=== PATIENT | female | born 1970 | race American Indian/Alaskan Native ===

== ENCOUNTER 2020-05-20 12:04 | Outpatient (CLI) | payer OTHER | END 2020-05-20 12:05 | disposition home or self-care (01) | LOC: PF 12:04 | PROVIDERS: ATTEND Internal Medicine | DX: R06.02 Shortness of breath (principal); I50.20 Unspecified systolic (congestive) heart failure; J90 Pleural effusion, not elsewhere classified | CPT/HCPCS: 94010; 94729 ==